=== PATIENT | male | born 2000 | race Caucasian/White ===

== ENCOUNTER 2021-10-11 16:33 | Emergency (ER) | payer MEDICAID ==
[~2021-10-11] VITALS: Ht 182.9 cm; Wt 72.7 kg
[~2021-10-11 16:33] MED LIST: ACET-1059 PO; CEPH250C92 PO
[2021-10-11 17:05] VITALS: BP 125/86
[2021-10-11] MEDS ORDERED: TETanus/Pertussis (Acell)/Diphther VAC/PF (Tdap-Adult) 0.5ml syringe IMVAC ONE (18:20)
== END 2021-10-11 18:36 | disposition home or self-care (01) ==
LOC: ER 16:34
DX: M79.672 Pain in left foot (principal); R19.7 Diarrhea, unspecified; R11.10 Vomiting, unspecified; Z79.2 Long term (current) use of antibiotics; Z79.899 Other long term (current) drug therapy
CPT/HCPCS: 90471; 90715; 99283